=== PATIENT | female | born 1990 | race African-American/Black ===

== ENCOUNTER 2017-09-18 20:16 | Day surgery (SDC) | payer SELFPAY ==
[2017-09-18 20:45] VITALS: BMI 25.2
[2017-09-18 21:54] LABS: FFN Internal QC Analyzer PASS (PASS); FFN Internal QC Cassette PASS (PASS); Fetal Fibronectin Negative (Negative)
[2017-09-18 22:24] LABS: Bilirubin Negative (Negative); Blood, Urine Negative (Negative); Clarity CLEAR (Clear); Glucose, Urine (Dipstick) Negative (Negative); Leukocyte Trace (Negative); Nitrite Negative (Negative); Protein, Urine (Dipstick) Negative (Neg-Trace); Specific Gravity, Urine 1.008 (1.002-1.036); Urobilinogen 0.2 mg/dL (0.2-1.0)
[2017-09-18 22:26] LABS: Bacteria/HPF 1+ HPF (None Seen); Hyaline Casts/LPF 0-3 HYALINE CAST LPF (0-3 Hyaline); RBC/HPF 0-3 HPF (0-3); Squamous Epithelial 0-3 HPF (0-3); WBC/HPF 0-3 HPF (0-3)
--- NOTE | 2017-09-19 06:33 | PRG ---
DATE OF SERVICE: 09/18/2017 PRIMARY OB: None. No care. CHIEF COMPLAINT: Back pain. HISTORY OF PRESENT ILLNESS: The patient is a 27-year-old female with an intrauterine at 25 weeks and 6 days based on a stated due date on an earlier ultrasound. The patient has moved t o the area at the beginning of July and has since had no care. The patient reports that she was seen at the [facility] recently last week for back pain and was discharged ho nm and is representing again here with similar complaints. The patient has a history of deli very at 27 weeks followed by a term delivery with progesterone supplementation. She reports that thi s she has not received any progesterone supplementation with her previous OB provider. She has intentions of establishing care with Dr. Salamanca, her previous OB provider in the community. Th e patient denies any fever, fall, headache, chest pain, shortness of breath, nausea, vomiting, diarrh ea, constipation. She denies any new rashes, hip problems, knee problems, vaginal bleeding, leakage of fluid, any urinary urgency or frequency. PAST MEDICAL HISTORY: Negative. PAST SURGICAL HISTORY: She has had 2 prior C-sections. ALLERGIES: No known drug allergies. MEDICATIONS: vitamins. SOCIAL HISTORY: Denies drug, alcohol or tobacco use. OB HISTORY: Again, she has had a 27-week delivery by and a term delivery, delivered by C-s ection. OB LABS: Unavailable. REVIEW OF SYSTEMS: Per HPI. PHYSICAL EXAMINATION: VITAL SIGNS: Blood pressure 113/62, heart rate of 90, respiratory rate of 20, temperature 98.7. GENERAL: She appears to be in no acute distress. She is alert and oriented, cooperative and pleasan t to interact with. HEENT: Head is normocephalic, atraumatic. LUNGS: Clear to auscultation bilaterally. HEART: Regular rate and rhythm. ABDOMEN: Soft and gravid. She does have some tenderness with deviation of the uterus. EXTREMITIES: Nontender, nonedematous. GENITOURINARY: Has been deferred. heart tracing performed for back pain in . Baseline is noted to be in the 140s with m oderate to long-term variability, appropriate for gestational age, having positive accelerations. To cometer shows no evidence of contractions. fibronectin was ordered, performed and is negative. Cervical length was also ordered and noted to be 2.1 cm. LABORATORY STUDIES: Urine shows negative for protein, negative for ketones, negative for nitrites, t race leukocyte esterase, negative, squamous cells, negative white blood cells, 1+ bacteria. STUDENT SUCCESS COUNSELOR-3 is pending. ASSESSMENT AND PLAN: The patient is a 27-year-old female with an intrauterine at 25 weeks and 6 days who is having lower back pain and was concerned given her history of early deliver y of her risk for delivering early again. The patient with a negative fibronectin and a cervic al length of 2.1 cm, is unlikely to deliver in the next couple weeks. She is at increased risk for p reterm delivery and needs to establish OB care as soon as possible with Dr. Salamanca. The patient rep orts that her insurance activates 09/23/2017. Patient has evidence of urinary tract infection and wi ll be sent home on Macrobid to be taken twice a day for the next 7 days. The patient has been given labor precautions and is being discharged home.
--- NOTE | 2017-09-19 06:39 | ULT ---
ULTRASOUND OBSTETRICAL LIMITED: DATE: 09/18/2017 TIME: 11:33 p.m. HISTORY: A 27-year-old female, in late second trimester or early third trimester of , with p elvic pain. History of pre-term delivery at 27 weeks for prior . FINDINGS: number: Gann. lie: Cephalic. Placenta: Anterior. No placenta previa, and no placental abruption. Maternal cervix: Internal cervical os has a mild, V-shaped funneling with a depth of approximately 1 .5 cm. There is a lentiform, heterogeneously hypoechoic structure in the region of the cervical connie l, distal to the internal cervix os, which probably represents a mucus plug. The length of the cervi x is approximately 3.5 to 4.5 cm. heart rate: 147 BPM. anatomy: not evaluated in detail. RBO: 14 cm. biometry: not measured. IMPRESSION: Mild V-shaped funneling of the cervix. POS: [facility]
--- NOTE | 2017-09-19 18:45 | PDOC.EVN ---
Event Note - Event Note Event Note: Post discharge lab Check: patient called to get VP3 results. BV result reviewed with her.... I will call in [facility] at [address] [place] [id number] and Inocencio a RX for Flagyl po 500mg po BID X 7 days
== END 2017-09-19 00:20 | disposition home or self-care (01) ==
LOC: L&D/OP 20:16
PROVIDERS: ATTEND Obstetrics & Gynecology
DX: O99.89 Other specified diseases and conditions complicating pregnancy, childbirth and the puerperium (principal); M54.9 Dorsalgia, unspecified; Z3A.25 25 weeks gestation of pregnancy
CPT/HCPCS: 76857; 81001; 82731; 87480; 87510; 87660

== ENCOUNTER 2017-11-19 07:07 | Emergency (ER) | payer OTHER, SELFPAY | END 2017-11-19 07:34 | disposition home or self-care (01) | LOC: ERS 07:07 | DX: O99.89 Other specified diseases and conditions complicating pregnancy, childbirth and the puerperium (principal); B86 Scabies; Z3A.00 Weeks of gestation of pregnancy not specified | CPT/HCPCS: 99282 ==

== ENCOUNTER 2019-02-19 17:48 | Emergency (ER) | payer OTHER, SELFPAY | END 2019-02-19 18:18 | disposition home or self-care (01) | LOC: ERS 17:48 | DX: S90.112A Contusion of left great toe without damage to nail, initial encounter (principal); X58.XXXA Exposure to other specified factors, initial encounter | CPT/HCPCS: 99283 ==

== ENCOUNTER 2019-08-21 02:10 | Emergency (ER) | payer OTHER, SELFPAY ==
[2019-08-21 11:00] LABS: SARS-CoV-2 MS2 Positive; SARS-CoV-2 N Gene Positive; SARS-CoV-2 S Gene Positive; SARS-CoV-2 orf1ab Positive
== END 2019-08-21 03:00 | disposition home or self-care (01) ==
LOC: ERS 02:10
DX: U07.1 COVID-19 (principal); R05 Cough; R09.81 Nasal congestion
CPT/HCPCS: 87635; 99283; U0003

== ENCOUNTER 2019-09-04 06:42 | Emergency (ER) | payer OTHER, SELFPAY ==
[2019-09-04 18:03] LABS: SARS-CoV-2 MS2 Positive; SARS-CoV-2 N Gene Positive; SARS-CoV-2 S Gene Positive; SARS-CoV-2 orf1ab Positive
== END 2019-09-04 07:15 | disposition home or self-care (01) ==
LOC: ERS 06:42
DX: U07.1 COVID-19 (principal)
CPT/HCPCS: 87635; 99281; U0003

== ENCOUNTER 2020-10-29 09:00 | Emergency (ER) | payer SELFPAY ==
[2020-10-29] MEDS ORDERED: Albuterol 200 PUFF (6.7GM INHALER) ONE (09:18)
== END 2020-10-29 09:55 | disposition home or self-care (01) ==
LOC: ERS 09:00
DX: J20.8 Acute bronchitis due to other specified organisms (principal)
CPT/HCPCS: 71045; 93005

== ENCOUNTER 2020-11-27 06:18 | Emergency (ER) | payer SELFPAY | END 2020-11-27 09:00 | disposition home or self-care (01) | LOC: ERS 06:18 | DX: S60.222A Contusion of left hand, initial encounter (principal) ==

== ENCOUNTER 2021-03-11 16:59 | Emergency (ER) | payer SELFPAY | END 2021-03-11 18:18 | disposition home or self-care (01) | LOC: ERS 16:59 | DX: B34.9 Viral infection, unspecified (principal) | CPT/HCPCS: 87804; 99283 ==

== ENCOUNTER 2021-03-13 19:31 | Emergency (ER) | payer SELFPAY ==
[2021-03-13] MEDS ORDERED: Acetaminophen 500 MG TAB ONE (21:10)
== END 2021-03-13 22:00 | disposition home or self-care (01) ==
LOC: ERS 19:31
DX: B34.9 Viral infection, unspecified (principal)
CPT/HCPCS: 87804; 99283

== ENCOUNTER 2021-09-28 12:13 | Emergency (ER) | payer SELFPAY | END 2021-09-28 13:11 | disposition home or self-care (01) | LOC: EEVIPCON 12:13 → ERS 12:13 | DX: R25.2 Cramp and spasm (principal); Z79.899 Other long term (current) drug therapy | CPT/HCPCS: 99283 ==

== ENCOUNTER 2022-03-06 07:23 | Emergency (ER) | payer SELFPAY ==
[2022-03-06 11:16] LABS: SARS-CoV-2 NAA Rapid Test Not Detected (NotDetected)
== END 2022-03-06 11:35 | disposition home or self-care (01) ==
LOC: ERS 07:23
DX: R05.9 Cough, unspecified (principal); R50.9 Fever, unspecified; Z20.822 Contact with and (suspected) exposure to COVID-19
CPT/HCPCS: 71045

== ENCOUNTER 2024-02-14 10:30 | Outpatient (CLI) | payer BC | END 2024-02-14 10:31 | disposition home or self-care (01) | LOC: ULT 10:30 | DX: R19.03 Right lower quadrant abdominal swelling, mass and lump (principal); R93.89 Abnormal findings on diagnostic imaging of other specified body structures | CPT/HCPCS: 76856; 93976 ==